=== PATIENT | male | born 1935 | race Caucasian/White ===

== ENCOUNTER 2018-05-29 16:11 | Inpatient (IN) | payer MEDICARE ==
[2018-05-29 16:40] LABS: ABSOLUTE BASOPHILS # (AUTO) 0.1 10^3/uL (0.0-0.2); ABSOLUTE EOSINOPHILS # (AUTO) 0.2 10^3/uL (0.0-0.6); ABSOLUTE MONOCYTES (AUTO) 0.3 10^3/uL (0.1-1.4); ABSOLUTE NEUT (AUTO) 9.6 10^3/uL (1.7-8.2); BASOPHILS % (AUTO) 0.7 % (0-2); HEMATOCRIT 42.9 % (37.9-51.0); HEMOGLOBIN 14.1 g/dL (13.5-17.0); LYMPHOCYTES % (AUTO) 8.7 % (13-45); MEAN CORPUSCULAR HEMOGLOBIN 30.4 pg (27.0-33.4); MEAN CORPUSCULAR HGB CONC 32.9 g/dL (32.0-36.0); MEAN CORPUSCULAR VOLUME 93 fl (80-97); MONOCYTES % (AUTO) 3.1 % (3-13); PLATELET COUNT 240 10^3/uL (150-450); RED BLOOD COUNT 4.64 10^6/uL (4.35-5.55); RED CELL DISTRIBUTION WIDTH 13.8 % (11.5-14.0); SEGMENTED NEUTROPHILS % (AUTO) 85.5 % (42-78); TOTAL CELLS COUNTED % (AUTO) 100 %; WHITE BLOOD COUNT 11.3 10^3/uL (4.0-10.5)
[2018-05-29] MEDS ORDERED: IPRATROPIUM/ALBUTEROL 0.5-2.5 MG/3 ML AMPUL NEB ONE ×2 (16:44→19:22)
--- NOTE | 2018-05-29 16:47 | ER Document Report ---
ED General - General Stated Complaint: BREATHING PROBLEMS Time Seen by Provider: 05/29/18 16:36 Mode of Arrival: Medic Notes: 82-year-old male brought to emergency department by EMS for difficulty breathing. Patient is from [place] and is here staying with family. He has a history of dementia, hypertension, hyperlipidemia. He is on 2 L nasal cannula at home. Patient's family states that he had a cough that started yesterday. They noticed that he was having increased work of breathing today. No fever, chills, chest pain, abdominal pain. - HPI Onset: Just prior to arrival Onset/Duration: Sudden Quality of pain: No pain Associated symptoms: Shortness of breath Exacerbated by: Denies Relieved by: Denies Similar symptoms previously: No Recently seen / treated by doctor: No - Related Data Allergies/Adverse Reactions: No Known Allergies Allergy (Unverified 05/29/18 17:17) Past Medical History - Social History Smoking Status: Never Smoker Family History: Reviewed & Not Pertinent Review of Systems - Review of Systems -: Yes ROS unobtainable due to patient's medical condition Physical Exam - Vital signs Vitals: Resp Pulse Ox 31 H 91 L 05/29/18 16:24 05/29/18 16:24 - Notes Notes: PHYSICAL EXAMINATION: GENERAL: Ill appearing. HEAD: Atraumatic. EYES: Pupils equal round and reactive to light, extraocular movements intact, sclera anicteric, conjunctiva are normal. ENT: Nares patent, oropharynx clear without exudates. Moist mucous membranes. NECK: Normal range of motion, supple without lymphadenopathy LUNGS: Mild wheezing appreciated. Increased respiratory rate. HEART: Regular rate and rhythm without murmurs ABDOMEN: Soft, nontender, nondistended abdomen. No guarding, no rebound. No masses appreciated. Musculoskeletal: Normal range of motion, no pitting or edema. No cyanosis. NEUROLOGICAL: Cranial nerves grossly intact. Normal speech. Normal sensory, motor exams PSYCH: Normal mood, normal affect. SKIN: Warm, Dry, normal turgor, no rashes or lesions noted. Course - Re-evaluation Re-evalutation: 05/29/18 19:48 Labs and imaging obtained. Patient's white blood cell count is slightly elevated. His chest x-ray shows a left lower lobe pneumonia. Patient is tachypneic in the room. He is been given 2 DuoNeb treatments and Solu-Medrol by EMS. Blood cultures obtained. Patient given 1 g of Rocephin and 500 mg of azithromycin. I will admit the patient to the hospitalist for treatment of his pneumonia. is agreeable with admission. 05/29/18 19:50 EKG: Ventricular rate 100, OK interval 164, QRS duration 70, QTc 434, sinus tachycardia. No ST segment elevation. 05/29/18 23:25 - Vital Signs Vital signs: Temp Pulse Resp BP Pulse Ox 99.2 F 96 27 H 106/58 L 91 L 05/29/18 16:46 05/29/18 16:46 05/29/18 22:01 05/29/18 22:01 05/29/18 22:01 - Laboratory Result Diagrams: 05/29/18 15:40 05/29/18 15:40 Laboratory results interpreted by me: 05/29/18 05/29/18 05/29/18 15:40 15:40 17:37 WBC 11.3 H Seg Neutrophils % 85.5 H Lymphocytes % 8.7 L Absolute Neutrophils 9.6 H Carbonic Acid 0.99 L ABG pCO2 32.9 L ABG pO2 61.8 L ABG Total CO2 22.8 L ABG O2 Saturation 92.7 L Potassium 5.6 H Glucose 114 H Discharge - Discharge Clinical Impression: Pneumonia Qualifiers: Pneumonia type: due to unspecified organism Laterality: left Lung location: lower lobe of lung Qualified Code(s): J18.1 - Lobar pneumonia, unspecified organism Disposition: ADMITTED OBSERVATION Admitting Provider: Hospitalist Unit Admitted: Telemetry
[2018-05-29 17:10] LABS: ALANINE AMINOTRANSFERASE 31 U/L (21-72); ALBUMIN 4.4 g/dL (3.5-5.0); ALKALINE PHOSPHATASE 75 U/L (38-126); ANION GAP 13 (5-19); ASPARTATE AMINO TRANSFERASE 49 U/L (17-59); BILIRUBIN,DIRECT 0.3 mg/dL (0.0-0.4); BILIRUBIN,TOTAL 0.6 mg/dL (0.2-1.3); BLOOD UREA NITROGEN 20 mg/dL (7-20); CALCIUM 9.6 mg/dL (8.4-10.2); CARBON DIOXIDE 27 mmol/L (22-30); CHLORIDE 101 mmol/L (98-107); CREATINE KINASE 63 U/L (55-170); GLUCOSE 114 mg/dL (75-110); POTASSIUM 5.6 mmol/L (3.6-5.0); SODIUM 141.2 mmol/L (137-145); TOTAL PROTEIN 7.6 g/dL (6.3-8.2)
[2018-05-29 17:18] LABS: CREATINE KINASE MB 1.99 ng/mL (<4.55)
[2018-05-29 17:23] LABS: TROPONIN I < 0.012 ng/mL
[2018-05-29 17:48] LABS: ARTERIAL BLOOD H2CO3 0.99 mmol/L (1.05-1.35); ARTERIAL BLOOD HCO3 21.7 mmol/L (20-24); ARTERIAL BLOOD PCO2 32.9 mmHg (35-45); ARTERIAL BLOOD PH 7.44 (7.35-7.45); ARTERIAL BLOOD PO2 61.8 mmHg (80-100); ARTERIAL BLOOD TOTAL CO2 22.8 mmol/L (23-27)
[2018-05-29 17:49] LABS: ARTERIAL BLOOD BASE EXCESS -1.6 mmol/L; ARTERIAL BLOOD FIO2 4L; ARTERIAL BLOOD O2 SATURATION 92.7 % (94-98)
--- NOTE | 2018-05-29 18:20 | RADIOLOGY REPORT (SQ) ---
EXAM DESCRIPTION: CHEST SINGLE VIEW COMPLETED DATE/TIME: 05/29/2018 4:58 pm REASON FOR STUDY: sob COMPARISON: None. EXAM PARAMETERS: NUMBER OF VIEWS: One view. TECHNIQUE: Single frontal radiographic view of the chest acquired. RADIATION DOSE: NA LIMITATIONS: None. FINDINGS: LUNGS AND PLEURA: There is opacification in the left base. MEDIASTINUM AND HILAR STRUCTURES: No masses. Contour normal. HEART AND VASCULAR STRUCTURES: Heart size is normal. There is ectasia of the ascending aorta. BONES: No acute findings. HARDWARE: None in the chest. OTHER: No other significant finding. IMPRESSION: Left lower lobe pneumonia. Ectasia of the ascending aorta. TECHNICAL DOCUMENTATION: JOB ID: [id number] [email or web address]- All Rights Reserved Reading location - IP/workstation name: [email or web address]
[2018-05-29] MEDS ORDERED: AZITHROMYCIN INJ 500 MG VIAL IV ONE (18:50)
[2018-05-29] MEDS ORDERED: CEFTRIAXONE INJ 1000 MG VIAL IV ONE (18:50)
[2018-05-29] MEDS ORDERED: NORMAL SALINE 1000 ML 1,000 ML IV ONE (18:52)
[2018-05-29 19:22] LABS: APPEARANCE,URINE CLEAR; BILIRUBIN,URINE NEGATIVE (NEGATIVE); COLOR,URINE STRAW; GLUCOSE, URINE NEGATIVE (NEGATIVE); KETONES,URINE NEGATIVE (NEGATIVE); LEUKOCYTE ESTERASE,URINE NEGATIVE (NEGATIVE); NITRITE,URINE NEGATIVE (NEGATIVE); PROTEIN,URINE NEGATIVE (NEGATIVE); URINE SPECIFIC GRAVITY 1.011; UROBILINOGEN,URINE NEGATIVE mg/dL (<2.0)
[2018-05-29] MEDS ORDERED: PROMETHAZINE HCL 25 MG TABLET PO PRN (20:25)
[2018-05-29] MEDS ORDERED: PROMETHAZINE HCL INJ 25 MG/1 ML VIAL IV PRN (20:25)
[2018-05-29] MEDS ORDERED: TEMAZEPAM 7.5 MG CAPSULE PO PRN (20:25)
[2018-05-29] MEDS ORDERED: MAG HYDROX/AL HYDROX/SIMETH SUSP 30 ML UDCUP PO PRN (20:25)
[2018-05-29] MEDS ORDERED: LEVALBUTEROL HCL NEB 1.25 MG/3 ML AMPUL NEB PRN (20:25)
[2018-05-29] MEDS ORDERED: GLUCAGON,HUMAN RECOMB 1 MG INJ IM PRN (20:39)
[2018-05-29] MEDS ORDERED: DEXTROSE 50%-WATER 25 GM/50 ML DISP.SYRIN IV PRN ×2 (20:39)
[2018-05-29] MEDS ORDERED: DEXTROSE 40% GEL 15 GM TUBE PO PRN ×2 (20:39)
[2018-05-29] MEDS: METHYLPREDNISOLONE INJ 125 MG/2 ML SDV IV SCH (22:16)
[2018-05-29] MEDS: ENOXAPARIN SODIUM INJ 40 MG/0.4 ML DISP.SYRIN SUBCUT SCH (22:17)
--- NOTE | 2018-05-29 23:44 | PDOC H&P ---
History of Present Illness Admission Date/PCP: 05/29/18 20:25 In [place] Patient complains of: Shortness of breath History of Present Illness: WILMAR SHERMAN is a 82 year old male who came to visit from [place] to his grandson who is at the bedside, has a remarkable history of diabetes mellitus type 2, CVA, hypertension, hypothyroidism. Grandsons girlfriend is at the bedside and tells me that she left about 2 PM and he had some persistent cough, later on girlfriend son stay at home when patient started asking for help as he had severe shortness of breath, EMS was called and he was found saturating 85% on room air, using accessory muscles, on respiratory distress. Tachypneic at 40. Patient has a history of pneumonia last year and upon discharge he was given oxygen that he uses intermittently. He is having cough with clear and yellowish sputum, unknown if wheezing, denies fever, chills, nausea, vomiting, chest pain, sore throat, patient has chronic runny nose. Grandson tells me that he has been told to eat a thick liquids and he has aspiration problem and his pneumonia a year ago was probably aspiration pneumonia. By the time I went to see him he was on oxygen at 4 L with oxygen saturation of 97%. Chest x-ray came back positive with left lower lobe infiltrates By the time I went to evaluate him he still looks tachypneic and very mild respiratory distress but not using accessory muscles. Past Medical History Cardiac Medical History: Reports: Hyperlipidema, Hypertension Pulmonary Medical History: Reports: Pneumonia Neurological Medical History: Reports: Ischemic CVA, Other - CVA with left mild residual weakness in 2005 Endocrine Medical History: Reports: Diabetes Mellitus Type 2, Hypothyroidism Psychiatric Medical History: Reports: Dementia - Mild to moderate Hematology: Reports: Anemia - Iron deficiency Past Surgical History Past Surgical History: Reports: None Social History Information Source: Relative Smoking Status: Never Smoker Frequency of Alcohol Use: None Hx Recreational Drug Use: No Hx Prescription Drug Abuse: No Past Social History Note: Patient lives in [place] with his - Advance Directive Resuscitation Status: Full Code Family History Family History: Reviewed & Not Pertinent Parental Family History Reviewed: No - Noncontributory Children Family History Reviewed: NA Sibling(s) Family History Reviewed.: NA Medication/Allergy Home Medications: Amlodipine Besylate [Norvasc 5 mg Tablet] 5 mg PO Q12 05/29/18 Cholecalciferol (Vitamin D3) [Vitamin D] 2,000 unit PO DAILY 05/29/18 Docusate Sodium [Colace] 100 mg PO DAILYP PRN 05/29/18 Ferrous Sulfate [Ferosul] 325 mg PO Q12 05/29/18 Glycerin 1 each RC DAILYP PRN 05/29/18 Levothyroxine Sodium 75 mcg PO DAILY 05/29/18 Losartan Potassium 100 mg PO DAILY 05/29/18 Metformin HCl 500 mg PO DAILY 05/29/18 Metoprolol Tartrate [Lopressor 25 mg Tablet] 25 mg PO Q12 05/29/18 [place]-3 Fatty Acids/Fish Oil [Fish Oil 1,000 mg Capsule] 1,000 mg PO Q12 Potassium Chloride [K-Tab] 10 meq PO DAILY 05/29/18 Pramipexole Di-HCl [Mirapex] 1 mg PO QHS 05/29/18 Simvastatin [Zocor 10 mg Tablet] 10 mg PO DAILY 05/29/18 Allergies/Adverse Reactions: No Known Allergies Allergy (Unverified 05/29/18 17:17) Review of Systems Review of Systems: As outlined in the HPI, others negative Physical Exam Vital Signs: Temp Pulse Resp BP Pulse Ox 99.2 F 96 27 H 106/58 L 91 L 05/29/18 16:46 05/29/18 16:46 05/29/18 22:01 05/29/18 22:01 05/29/18 22:01 Intake & Output 05/28/18 05/29/18 05/30/18 06:59 06:59 06:59 Intake Total 167 Balance 167 Additional comments: General appearance: Well-developed, elderly, alert and cooperative, and appears to be in mild respiratory distress Head: Normocephalic Eyes: PEERL, EOMI, vision, uses glasses. Ears: External auditory canal and tympanic membranes clear, hearing grossly intact. Nose: No nasal discharge. Throat: Oral cavity and pharynx normal. No inflammation, swelling, exudate or lesions. Neck: Neck supple, nontender without lymphadenopathy, masses or thyromegaly. Cardiac: Normal S1 and S2. No S3, S4 or murmurs. Rhythm is regular. There is no peripheral edema, cyanosis or pallor. Extremities are warm and well perfused. Capillary refill is less than 2 seconds. No carotid bruits. Lungs: Diminished breath sounds, crackles two thirds inferior bilaterally with mild expiratory wheezing, no rhonchi. Not using accessory muscles. Abdomen: Positive bowel sounds. Soft. Nondistended, nontender. No guarding or rebound. No masses. No hepatosplenomegaly Extremities: No significant deformity or joint abnormality. No edema. Peripheral pulses intact. No varicosities. Neurological: Cranial nerves II through XII grossly intact. Strength and sensation mildly decreased in left upper extremity Skin: Skin normal color, texture and turgor with no lesions or eruptions, warm and dry. Psychiatric: The mental examination revealed the patient was oriented to person , partially to place, and time. He knows the year, month, date, he knew this was a hospital bed he did not know the exact location, knew was in [place], cannot recognize family members, knows the president. Results Laboratory Results: 05/29/18 05/29/18 05/29/18 15:40 15:40 15:40 WBC 11.3 H RBC 4.64 Hgb 14.1 Hct 42.9 MCV 93 MCH 30.4 MCHC 32.9 RDW 13.8 Plt Count 240 Seg Neutrophils % 85.5 H Lymphocytes % 8.7 L Monocytes % 3.1 Eosinophils % 2.0 Basophils % 0.7 Absolute Neutrophils 9.6 H Absolute Lymphocytes 1.0 Absolute Monocytes 0.3 Absolute Eosinophils 0.2 Absolute Basophils 0.1 Carbonic Acid HCO3/H2CO3 Ratio ABG pH ABG pCO2 ABG pO2 ABG HCO3 ABG Total CO2 ABG O2 Saturation ABG Base Excess FiO2 Sodium 141.2 Potassium 5.6 H Chloride 101 Carbon Dioxide 27 Anion Gap 13 BUN 20 Creatinine 0.88 Est GFR ( Amer) > 60 Est GFR (Non-Af Amer) > 60 Glucose 114 H Calcium 9.6 Total Bilirubin 0.6 Direct Bilirubin 0.3 AST 49 ALT 31 Alkaline Phosphatase 75 Creatine Kinase 63 CK-MB (CK-2) 1.99 Troponin I < 0.012 Total Protein 7.6 Albumin 4.4 Urine Color Urine Appearance Urine pH Ur Specific [place] Urine Protein Urine Glucose (UA) Urine Ketones Urine Blood Urine Nitrite Urine Bilirubin Urine Urobilinogen Ur Leukocyte Esterase Urine WBC (Auto) Urine RBC (Auto) U Hyaline Cast (Auto) Urine Mucus (Auto) Urine Ascorbic Acid 05/29/18 05/29/18 17:37 19:14 WBC RBC Hgb Hct MCV MCH MCHC RDW Plt Count Seg Neutrophils % Lymphocytes % Monocytes % Eosinophils % Basophils % Absolute Neutrophils Absolute Lymphocytes Absolute Monocytes Absolute Eosinophils Absolute Basophils Carbonic Acid 0.99 L HCO3/H2CO3 Ratio 21:1 ABG pH 7.44 ABG pCO2 32.9 L ABG pO2 61.8 L ABG HCO3 21.7 ABG Total CO2 22.8 L ABG O2 Saturation 92.7 L ABG Base Excess -1.6 FiO2 4L Sodium Potassium Chloride Carbon Dioxide Anion Gap BUN Creatinine Est GFR ( Amer) Est GFR (Non-Af Amer) Glucose Calcium Total Bilirubin Direct Bilirubin AST ALT Alkaline Phosphatase Creatine Kinase CK-MB (CK-2) Troponin I Total Protein Albumin Urine Color STRAW Urine Appearance CLEAR Urine pH 6.0 Ur Specific [place] 1.011 Urine Protein NEGATIVE Urine Glucose (UA) NEGATIVE Urine Ketones NEGATIVE Urine Blood NEGATIVE Urine Nitrite NEGATIVE Urine Bilirubin NEGATIVE Urine Urobilinogen NEGATIVE Ur Leukocyte Esterase NEGATIVE Urine WBC (Auto) 1 Urine RBC (Auto) 0 U Hyaline Cast (Auto) 1 Urine Mucus (Auto) RARE Urine Ascorbic Acid NEGATIVE Impressions: Chest X-Ray 05/29/18 16:27 IMPRESSION: Left lower lobe pneumonia. Ectasia of the ascending aorta. Assessment & Plan - Diagnosis (1) Acute respiratory failure with hypoxia Is this a current diagnosis for this admission?: Yes Plan: Initial oxygen saturation was 85% on room air, improve after oxygen via nasal cannula and treatment given in the emergency department, currently saturating 97 % on 4 L oxygen. (2) Community acquired pneumonia Qualifiers: Laterality: left Is this a current diagnosis for this admission?: Yes Plan: Patient comes with initial acute hypoxic respiratory failure, found with left lower lobe infiltrate. We will continue the patient with IV Rocephin and IV azithromycin. Nebulizer treatments every 3 hours as needed. IV steroids. Oxygen protocol via nasal cannula. Incentive spirometry. RT consult. Sputum culture. Please follow blood cultures. 1 L of normal saline given in the ED, continue with normal saline at 75 cc/h. (3) Diabetes mellitus type 2 in nonobese Is this a current diagnosis for this admission?: Yes (4) History of CVA (cerebrovascular accident) Is this a current diagnosis for this admission?: Yes Plan: Very mild left upper extremity hemiparesis, grandson tells me that he is very unsteady and uses a cane to walk. (5) Hypertension Qualifiers: Hypertension type: essential hypertension Qualified Code(s): I10 - Essential (primary) hypertension Is this a current diagnosis for this admission?: Yes Plan: Resume home antihypertensive medications (6) Dysphagia Qualifiers: Dysphagia type: unspecified Qualified Code(s): R13.10 - Dysphagia, unspecified Is this a current diagnosis for this admission?: Yes Plan: Apparently patient is supposed to eat thick diet, unclear if his pneumonia secondary to aspiration, will place swallow evaluation. (7) Hyperkalemia Is this a current diagnosis for this admission?: Yes Plan: Potassium 5.6, will reassess potassium after IV fluids hydration.
[2018-05-30] MEDS: IPRATROPIUM/ALBUTEROL 0.5-2.5 MG/3 ML AMPUL NEB PRN ×2 (00:10→08:30)
[2018-05-30] MEDS: INSULIN LISPRO 100 UNIT/ML 3 ML VIAL SUBCUT PRN ×4 (00:13→21:53)
[2018-05-30] MEDS ORDERED: GLYCERIN (PEDIATRIC) SUPP.RECT PR PRN (02:54)
[2018-05-30] MEDS ORDERED: DOCUSATE SODIUM 100 MG CAPSULE PO PRN (02:54)
[2018-05-30 04:54] LABS: MEAN CORPUSCULAR HEMOGLOBIN 30.8 pg (27.0-33.4); MEAN CORPUSCULAR HGB CONC 33.6 g/dL (32.0-36.0); MEAN CORPUSCULAR VOLUME 92 fl (80-97); PLATELET COUNT 198 10^3/uL (150-450); RED BLOOD COUNT 3.82 10^6/uL (4.35-5.55); RED CELL DISTRIBUTION WIDTH 13.7 % (11.5-14.0); WHITE BLOOD COUNT 16.6 10^3/uL (4.0-10.5)
[2018-05-30] MEDS: NORMAL SALINE 1000 ML 1,000 ML IV PRN (05:00)
[2018-05-30 05:01] LABS: HEMOGLOBIN 11.8 g/dL (13.5-17.0)
[2018-05-30 05:11] LABS: ANION GAP 15 (5-19); BLOOD UREA NITROGEN 18 mg/dL (7-20); CALCIUM 9.3 mg/dL (8.4-10.2); CARBON DIOXIDE 19 mmol/L (22-30); CHLORIDE 105 mmol/L (98-107); GLUCOSE 181 mg/dL (75-110); PHOSPHORUS 2.6 mg/dL (2.5-4.5); SODIUM 139.2 mmol/L (137-145)
[2018-05-30 05:28] LABS: ABSOLUTE LYMPHOCYTES# (MANUAL) 0.5 10^3/uL (0.5-4.7); ABSOLUTE MONOCYTES # (MANUAL) 0.2 10^3/uL (0.1-1.4); ABSOLUTE NEUTROPHILS# (MANUAL) 15.9 10^3/uL (1.7-8.2); BASOPHILS % (MANUAL) 0 % (0-2); EOSINOPHILS % (MANUAL) 0 % (0-6); LYMPHOCYTES % (MANUAL) 3 % (13-45); MONOCYTES % (MANUAL) 1 % (3-13); PLATELET COMMENT ADEQUATE; SCHISTOCYTES SLIGHT; SEGMENTED NEUTROPHILS % (MAN) 96 % (42-78); TOTAL CELLS COUNTED 100
[2018-05-30] MEDS: METHYLPREDNISOLONE INJ 125 MG/2 ML SDV IV SCH (05:34)
[2018-05-30] MEDS: LEVOTHYROXINE SODIUM 0.075 MG TABLET PO SCH (05:35)
[2018-05-30 06:45] LABS: ARTERIAL BLOOD PH 7.55 (7.35-7.45)
[2018-05-30 06:46] LABS: ARTERIAL BLOOD BASE EXCESS -1.5 mmol/L; ARTERIAL BLOOD FIO2 35%; ARTERIAL BLOOD H2CO3 0.69 mmol/L (1.05-1.35); ARTERIAL BLOOD HCO3 19.4 mmol/L (20-24); ARTERIAL BLOOD O2 SATURATION 98.5 % (94-98); ARTERIAL BLOOD PCO2 22.9 mmHg (35-45); ARTERIAL BLOOD TOTAL CO2 20.1 mmol/L (23-27)
--- NOTE | 2018-05-30 08:54 | EKG REPORT ---
SEVERITY:- BORDERLINE ECG - SINUS TACHYCARDIA PROBABLE LEFT ATRIAL ABNORMALITY BORDERLINE T ABNORMALITIES, ANT-LAT LEADS : Confirmed by: Lorelei Sawyer 30-May-2018 08:53:44
[2018-05-30] MEDS ORDERED: METFORMIN HCL 500 MG TABLET PO SCH ×3 (10:00→17:14)
[2018-05-30] MEDS ORDERED: OMEGA-3 ACID ETHYL ESTERS 1 GM CAPSULE PO SCH (10:00)
[2018-05-30] MEDS ORDERED: SIMVASTATIN 10 MG TABLET PO SCH (10:00)
[2018-05-30] MEDS ORDERED: METOPROLOL TARTRATE 25 MG TABLET PO SCH (10:00)
[2018-05-30] MEDS ORDERED: AZITHROMYCIN INJ 500 MG VIAL IV SCH (10:00)
[2018-05-30] MEDS ORDERED: CEFTRIAXONE 2 GM/D5W RTU 2 GM/50 ML RTUPB IV SCH (10:00)
[2018-05-30] MEDS ORDERED: AMLODIPINE BESYLATE 5 MG TABLET PO SCH (10:00)
[2018-05-30] MEDS ORDERED: FERROUS SULFATE 325 MG TABLET PO SCH (10:00)
[2018-05-30] MEDS ORDERED: CEFTRIAXONE SODIUM 2,000 MG in DEXTROSE 5%-WATER 100 ML IV SCH (10:00)
[2018-05-30] MEDS: CHOLECALCIFEROL (D3) 1,000 UNIT TABLET PO SCH (10:27)
[2018-05-30] MEDS: LOSARTAN POTASSIUM 50 MG TABLET PO SCH (10:27)
[2018-05-30] MEDS: ENOXAPARIN SODIUM INJ 40 MG/0.4 ML DISP.SYRIN SUBCUT SCH (10:30)
[2018-05-30] MEDS ORDERED: PROMETHAZINE HCL INJ 25 MG/1 ML VIAL IV PRN (10:30)
[2018-05-30] MEDS: METHYLPREDNISOLONE INJ 40 MG/1 ML SDV IV SCH ×2 (14:12→21:53)
[2018-05-30] MEDS: LEVALBUTEROL HCL NEB 1.25 MG/3 ML AMPUL NEB SCH ×3 (14:13→23:59)
[2018-05-30] MEDS: BUDESONIDE NEB 0.5 MG/2 ML AMPUL NEB SCH ×2 (14:13→19:44)
[2018-05-30] MEDS: ACETYLCYSTEINE 20% SOLN 800 MG/4 ML VIAL.NEB NEB SCH ×2 (14:16→19:44)
[2018-05-30] MEDS: IPRATROPIUM BROMIDE 0.02% NEB 0.5 MG/2.5 ML AMPUL NEB SCH (16:15)
--- NOTE | 2018-05-30 17:13 | PDOC PROGRESS REPORT ---
Subjective Progress Note for:: 05/30/18 Subjective:: WILMAR SEHRMAN is a 82 year old male who presented to the emergency room with acute onset of cough and dyspnea. He admits that he began having a cough on the afternoon of admission which became more and more persistent with severe paroxysms lasting for more extended durations each time. The cough was accompanied by progressively more severe dyspnea which became so bad that he asked that EMS be summoned. Upon EMS arrival he was found to have an O2 sat of 85% on room air and to be in significant respiratory distress with marked tachypnea and requiring use of accessory muscles to assist his breathing. He admits that the cough has been productive of mostly clear but occasionally yellowish sputum and he has rhinorrhea but this is a chronic condition. He admits that he has had pneumonia in the past with an episode last year where he had similar symptoms and required oxygen during his hospitalization and at home after discharge. He also admits a history of dysphagia and is prescribed to use nectar thick liquids however he does not always follow his doctor's recommendation. In the emergency room he was found to have a left lower lung field infiltrate (airspace disease) but was easily stabilized with 4 L of oxygen via nasal cannula resulting in a 97% oxygen saturation. He was admitted to treat his community-acquired pneumonia due to his acute respiratory failure with hypoxia and his age and multiple comorbidities. Reason For Visit: CAP Physical Exam Vital Signs: Temp Pulse Resp BP Pulse Ox 97.9 F 69 16 118/60 100 05/30/18 11:14 05/30/18 14:13 05/30/18 14:13 05/30/18 11:14 05/30/18 14:13 Intake & Output 05/28/18 05/29/18 05/30/18 23:59 23:59 23:59 Intake Total 167 919 Output Total 1475 Balance 167 -556 Weight 66.3 kg 64.9 kg General appearance: PRESENT: cooperative, mild distress - Mild respiratory distress with tachypnea, other - Wearing a CPAP mask that is fitting very poorly , with virtually no seal to the patient's face. Head exam: PRESENT: atraumatic, normocephalic Eye exam: PRESENT: conjunctiva pink, EOMI Ear exam: PRESENT: normal external ear exam. ABSENT: drainage Mouth exam: PRESENT: neck supple, tongue midline Neck exam: ABSENT: JVD, thyromegaly, tracheal deviation Respiratory exam: PRESENT: prolonged expiratory phas - Mildly prolonged expiratory phase throughout the chest, rales - Coarse rales noted in the left base posteriorly and laterally., rhonchi - Coarse rhonchi present on the left, symmetrical, tachypnea, wheezes - Minimal end expiratory wheezes in all ozuna. ABSENT: accessory muscle use, chest wall tenderness, stridor Cardiovascular exam: PRESENT: RRR. ABSENT: clicks, gallop, rubs Vascular exam: PRESENT: normal capillary refill. ABSENT: pallor GI/Abdominal exam: PRESENT: normal bowel sounds, soft Rectal exam: PRESENT: deferred Extremities exam: ABSENT: joint swelling, pedal edema Musculoskeletal exam: PRESENT: full ROM, normal inspection Neurological exam: PRESENT: alert, oriented to person, oriented to place, oriented to time, oriented to situation Psychiatric exam: PRESENT: appropriate affect, normal mood Skin exam: PRESENT: dry, intact, warm. ABSENT: jaundice, rash, urticaria Results Laboratory Results: 05/30/18 04:13 05/30/18 04:13 05/29/18 05/30/18 05/30/18 23:52 04:13 04:13 WBC 16.6 H RBC 3.82 L Hgb 11.8 L D Hct 35.0 L MCV 92 MCH 30.8 MCHC 33.6 RDW 13.7 Plt Count 198 Seg Neutrophils % Not Reportable Lymphocytes % Not Reportable Monocytes % Not Reportable Eosinophils % Not Reportable Basophils % Not Reportable Absolute Neutrophils Not Reportable Absolute Lymphocytes Not Reportable Absolute Monocytes Not Reportable Absolute Eosinophils Not Reportable Absolute Basophils Not Reportable Carbonic Acid HCO3/H2CO3 Ratio ABG pH ABG pCO2 ABG pO2 ABG HCO3 ABG O2 Saturation ABG Base Excess FiO2 Sodium 139.2 Potassium 5.3 H 5.0 Chloride 105 Carbon Dioxide 19 L Anion Gap 15 BUN 18 Creatinine 0.85 Est GFR ( Amer) > 60 Est GFR (Non-Af Amer) > 60 Glucose 181 H Calcium 9.3 Phosphorus 2.6 Magnesium 1.9 05/30/18 06:20 WBC RBC Hgb Hct MCV MCH MCHC RDW Plt Count Seg Neutrophils % Lymphocytes % Monocytes % Eosinophils % Basophils % Absolute Neutrophils Absolute Lymphocytes Absolute Monocytes Absolute Eosinophils Absolute Basophils Carbonic Acid 0.69 L HCO3/H2CO3 Ratio 28:1 ABG pH 7.55 H ABG pCO2 22.9 L ABG pO2 106.0 H ABG HCO3 19.4 L ABG O2 Saturation 98.5 H ABG Base Excess -1.5 FiO2 35% Sodium Potassium Chloride Carbon Dioxide Anion Gap BUN Creatinine Est GFR ( Amer) Est GFR (Non-Af Amer) Glucose Calcium Phosphorus Magnesium EKG Comments: EKG shows a sinus tachycardia with nonspecific T wave changes present. Impressions: Chest X-Ray 05/29/18 16:27 IMPRESSION: Left lower lobe pneumonia. Ectasia of the ascending aorta. Status: Image reviewed by me - Single view chest x-ray reveals acute airspace disease in the lower one third of the left lung ozuna. This most likely represents a left lower lobe pneumonia. No other acute changes are noted. Assessment & Plan - Diagnosis (1) Acute respiratory failure with hypoxia Is this a current diagnosis for this admission?: Yes Plan: Patient is being maintained on supplemental oxygen and use of advanced airway support devices such as CPAP as needed. Efforts will be made at reducing the patient's dependence on supplemental oxygen to whatever degree is possible. An aggressive pulmonary toilet and intravenous steroids will be employed in the effort. Additionally the underlying left lower lobe pneumonia is being aggressively treated as a community-acquired pneumonia utilizing Rocephin and Zithromax. (2) Community acquired pneumonia Qualifiers: Laterality: left Lung location: lower lobe of lung Qualified Code(s): J18.1 - Lobar pneumonia, unspecified organism Is this a current diagnosis for this admission?: Yes Plan: Patient is initiated on intravenous antibiotic therapy utilizing Zithromax 500 mg IV daily and Rocephin 1 g IV daily after an initial 2 g dose. He will also receive an aggressive pulmonary toilet utilizing Xopenex and Atrovent 3 times daily with budesonide and Mucomyst twice a day. His CBC and metabolic profile will be followed on a daily basis. (3) Diabetes mellitus type 2 in nonobese Is this a current diagnosis for this admission?: Yes Plan: Patient will be continued on his usual diabetic medication of metformin and a heart healthy consistent carbohydrate with no concentrated sweets diet. It is expected that his blood sugar will be erratic due to the use of steroids. Therefore he will additionally have before meals and at bedtime fingerstick blood sugars performed and he will receive sliding scale Humalog insulin based upon those results. A hemoglobin A1c will be obtained as well a TSH and a lipid profile to assist in evaluation of the patient's diabetes and other chronic problems. (4) Dysphagia Qualifiers: Dysphagia type: unspecified Qualified Code(s): R13.10 - Dysphagia, unspecified Is this a current diagnosis for this admission?: Yes Plan: Patient has a history of dysphagia which has been evaluated by speech therapy who recommends a modified barium swallow evaluation as well as a nectar thick liquids chopped meats and vegetables diet. This will be employed immediately. - Time Time Spent with patient: 15-24 minutes Medications reviewed and adjusted accordingly: Yes
[2018-05-30] MEDS ORDERED: AZITHROMYCIN 500 MG in DEXTROSE 5%-WATER 250 ML IV SCH (18:00)
[2018-05-30] MEDS ORDERED: CEFTRIAXONE SODIUM 1,000 MG in DEXTROSE 5%-WATER 50 ML IV SCH (18:00)
[2018-05-30] MEDS: ALBUTEROL SULFATE 0.083% NEB 2.5 MG/3 ML AMPUL NEB PRN (19:44)
[2018-05-30] MEDS: AMLODIPINE BESYLATE 10 MG TABLET PO SCH (21:52)
[2018-05-30] MEDS: ACETAMINOPHEN 325 MG TABLET PO PRN (21:52)
[2018-05-30] MEDS: PRAMIPEXOLE DI-HCL 0.5 MG TABLET PO SCH (21:52)
[2018-05-31] MEDS: NORMAL SALINE 1000 ML 1,000 ML IV PRN (04:30)
[2018-05-31 05:02] LABS: HEMATOCRIT 34.6 % (37.9-51.0); HEMOGLOBIN 11.6 g/dL (13.5-17.0); MEAN CORPUSCULAR HEMOGLOBIN 30.8 pg (27.0-33.4); MEAN CORPUSCULAR HGB CONC 33.5 g/dL (32.0-36.0); MEAN CORPUSCULAR VOLUME 92 fl (80-97); PLATELET COUNT 199 10^3/uL (150-450); RED BLOOD COUNT 3.77 10^6/uL (4.35-5.55); WHITE BLOOD COUNT 21.8 10^3/uL (4.0-10.5)
[2018-05-31 05:03] LABS: VENOUS BLOOD BASE EXCESS -5.4 mmol/L; VENOUS BLOOD HCO3 18.9 mmol/L (20-32); VENOUS BLOOD PCO2 32.9 mmHg (35-63); VENOUS BLOOD PH 7.38 (7.30-7.42)
[2018-05-31 05:25] LABS: ANION GAP 13 (5-19); BLOOD UREA NITROGEN 30 mg/dL (7-20); CALCIUM 9.3 mg/dL (8.4-10.2); CARBON DIOXIDE 21 mmol/L (22-30); CHLORIDE 107 mmol/L (98-107); CHOLESTEROL 122.56 mg/dL (0-200); GLUCOSE 185 mg/dL (75-110); POTASSIUM 4.9 mmol/L (3.6-5.0); SODIUM 140.5 mmol/L (137-145); TRIGLYCERIDES 54 mg/dL (<150)
[2018-05-31 05:36] LABS: DIRECT LDL 63 mg/dL (<100)
[2018-05-31] MEDS: LEVOTHYROXINE SODIUM 0.075 MG TABLET PO SCH (05:59)
[2018-05-31] MEDS: ACETYLCYSTEINE 20% SOLN 800 MG/4 ML VIAL.NEB NEB SCH ×2 (07:36→19:55)
[2018-05-31] MEDS: IPRATROPIUM BROMIDE 0.02% NEB 0.5 MG/2.5 ML AMPUL NEB SCH ×3 (07:36→16:05)
[2018-05-31] MEDS: BUDESONIDE NEB 0.5 MG/2 ML AMPUL NEB SCH ×2 (07:37→19:55)
[2018-05-31] MEDS: LEVALBUTEROL HCL NEB 1.25 MG/3 ML AMPUL NEB SCH ×2 (07:37→16:05)
[2018-05-31] MEDS: INSULIN LISPRO 100 UNIT/ML 3 ML VIAL SUBCUT PRN ×4 (08:49→22:00)
[2018-05-31] MEDS ORDERED: CEFTRIAXONE 1 GM/D5W RTU 1 GM/50 ML RTUPB IV SCH (10:00)
[2018-05-31] MEDS ORDERED: CEFTRIAXONE SODIUM 1,000 MG in DEXTROSE 5%-WATER 50 ML IV SCH (10:00)
[2018-05-31] MEDS: CHOLECALCIFEROL (D3) 1,000 UNIT TABLET PO SCH (10:56)
[2018-05-31] MEDS: METOPROLOL SUCCINATE 50 MG TAB.SR.24H PO SCH (10:56)
[2018-05-31] MEDS: LOSARTAN POTASSIUM 50 MG TABLET PO SCH (10:56)
[2018-05-31] MEDS: FERROUS SULFATE 325 MG TABLET PO SCH (10:56)
[2018-05-31] MEDS: METHYLPREDNISOLONE INJ 40 MG/1 ML SDV IV SCH (10:57)
[2018-05-31] MEDS: ENOXAPARIN SODIUM INJ 40 MG/0.4 ML DISP.SYRIN SUBCUT SCH (10:57)
--- NOTE | 2018-05-31 11:10 | ST Inp Modified Barium Swallow ---
Medical Diagnosis - Medical Diagnoses Medical Diagnosis Description & ICD-10 Code(s): Acute respiratory failure with hypoxia, dysphagia ST Inpatient MBS - General Date: 05/31/18 - History History Obtained From: Patient -: Medical - per EMR: patient admitted 05/29/18 due to shortness of breath. Prior medical history incudes diabetes, prior CVA, hypertension, hypothyroidism. Per patient report, he is "supposed to take thick liquids, but I don't always". Patient affirmed that he has had a MBSS completed, but is unable to state when this was done or what the findings were. Medications: Medications Reviewed Allergies: No known allergies - Subjective Current Nutritional Means: PO Current PO Diet: Mechanical - cut, Thickened liquids - nectar thick Current Symptoms: Pneumonia, Aspiration, Hx of asp. pneumonia Pain: no signs/symptoms of pain - Objective Assessment: Upright, Left Lateral - Food Trials Food Trials Used: [place] thick liquids, Pureed, Regular The Patient: Was Able to Self Feed - Assessment Labial Function: Within Normal Limits Lingual Function: Within Normal Limits Mandibular Function: Within Normal Limits Dentition: Partial Laryngeal Function: Volitional Cough - Pharyngeal Stage Initiation of Pharyngeal Stage: Normal Decreased Laryngeal Elevation: Yes Reduced Velo-Pharyngeal Closure: no Reduced Pressure Generation: Yes Reduced Tongue Base Retraction: No Pre-Swallowing Pooling in Valleculae: None Pre-Swallowing Pooling in Pyriforms: None Reduced Thyro-Hyiod Approximation: Yes Reduced Epiglottic Excursion: Yes Multiple Swallows With: Ineffective Clearance - for regular solids Post Swallow Residuals in Valleculae: Mild - for nectar thick liquids, Moderate - for puree, Significant - for regular solid Post Swallow Residuals in Pyriforms: Mild - Impression/Summary Laryngeal Penetration: Yes, Flash, Silent, during swallow - with nectar thick liquids in 1/5 swallows Tracheal Aspiration: yes, silent, after swallow - Silent aspiration of residuals of regular solid Effective Compensatory Strategies: chin tuck - Effective to clear significant residue of regular solid with liquid wash, throat clear & reswallow - to clear aspiratoin Patient Presents With: Mild-Moderate Risk of Aspiration: Moderate Risk of Nutritional Compromise: Mild - Recommendations NPO: no Solid Diet Recommendations: Mechanical Soft, Chopped Meat Liquid Diet Recommendations: [place]-Thick Strict Aspitarion Precautions: Yes Dysphagia Therapy with ROUTE RELIEF DRIVER: Yes, Inpatient - f/u x1 inpatient to review recommended compensatory strategies and provide education for swallowing exercises, Outpatient Recommended Techniques: Fully Upright During Meal, Small Bites and Sips, Alternate Bites/Sips, Chin Tuck to Swallow Supervision: Independent - Time Total Time: 25 Total Timed Minutes: 25
--- NOTE | 2018-05-31 11:25 | RADIOLOGY REPORT (SQ) ---
EXAM DESCRIPTION: AMANDA SWALLOW COMPLETED DATE/TIME: 05/31/2018 10:31 am REASON FOR STUDY: aspiration risk aspiration pneumonia, CVA, coughing with meals COMPARISON: None. TECHNIQUE: Videofluoroscopic swallowing examination was performed in conjunction with speech patholo gy. Videofluoroscopic imaging was obtained and reviewed and these are the findings: RADIATION DOSE: 3 minutes 14 seconds of fluoroscopy was used. 3 images saved to PACS. LIMITATIONS: None FINDINGS: The patient was brought into the fluoro room and placed upright on a modified barium swall ow chair. The patient was then given multiple consistencies mixed with barium to swallow under live fluoroscopic video guidance. According to the Speech Pathologist there was laryngeal penetration wit h thin liquids. There is aspiration of post swallow residual contrast from the vallecular and pirifo rm sinuses. Moderate post swallow residual contrast. IMPRESSION: LARYNGEAL PENETRATION WITH THIN LIQUIDS. SILENT ASPIRATION OF POST SWALLOW RESIDUAL CON TRAST FROM THE VALLECULA AND PIRIFORM SINUSES.PLEASE SEE SPEECH PATHOLOGIST REPORT FOR OTHER FINDINGS AND RECOMMENDATIONS. COMMENT: Quality ID [id number]: Final reports for procedures using fluoroscopy that document radiation exp osure indices, or exposure time and number of fluorographic images (if radiation exposure indices are not available) TECHNICAL DOCUMENTATION: JOB ID: [id number] [employer]- All Rights Reserved Reading location - IP/workstation name: [email or web address]
[2018-05-31] MEDS: GLIMEPIRIDE 4 MG TABLET PO SCH (12:55)
--- NOTE | 2018-05-31 16:18 | PDOC PROGRESS REPORT ---
Subjective Progress Note for:: 05/31/18 Subjective:: WILMAR SHERMAN is a 82 year old male who presented to the emergency room with acute onset of cough and dyspnea. He admits that he began having a cough on the afternoon of admission which became more and more persistent with severe paroxysms lasting for more extended durations each time. The cough was accompanied by progressively more severe dyspnea which became so bad that he asked that EMS be summoned. Upon EMS arrival he was found to have an O2 sat of 85% on room air and to be in significant respiratory distress with marked tachypnea and requiring use of accessory muscles to assist his breathing. He admits that the cough has been productive of mostly clear but occasionally yellowish sputum and he has rhinorrhea but this is a chronic condition. He admits that he has had pneumonia in the past with an episode last year where he had similar symptoms and required oxygen during his hospitalization and at home after discharge. He also admits a history of dysphagia and is prescribed to use nectar thick liquids however he does not always follow his doctor's recommendation. In the emergency room he was found to have a left lower lung field infiltrate (airspace disease) but was easily stabilized with 4 L of oxygen via nasal cannula resulting in a 97% oxygen saturation. He was admitted to treat his community-acquired pneumonia due to his acute respiratory failure with hypoxia and his age and multiple comorbidities. 05/31/2018: Wilmar is doing substantially better today. His breathing is significantly improved and he is able to tolerate activity although he still requires supplemental oxygen at 2-3 L. We discussed this and he will be willing to test paid and activity with the nurse assisting him in walking in the room and in the bell. I have converted his antibiotics to an oral formulation and have encouraged him to continue to eat and drink well. We have discussed at length the plan to discharge him to home tomorrow if he continues to do well and this is what he desires. He denies pain in his chest or abdomen and his or vomiting. His cough is become essentially nonproductive at this point and he is having a less frequent cough. Reason For Visit: CAP Physical Exam Vital Signs: Temp Pulse Resp BP Pulse Ox 98.0 F 63 18 102/53 L 97 05/31/18 11:49 05/31/18 14:00 05/31/18 11:49 05/31/18 11:49 05/31/18 11:49 Intake & Output 05/29/18 05/30/18 05/31/18 23:59 23:59 23:59 Intake Total 167 2642 1160 Output Total 1475 775 Balance 167 1167 385 Weight 66.3 kg 64.9 kg 66.2 kg General appearance: PRESENT: no acute distress, cooperative Head exam: PRESENT: atraumatic, normocephalic Eye exam: PRESENT: conjunctiva pink, EOMI Ear exam: PRESENT: normal external ear exam. ABSENT: drainage Mouth exam: PRESENT: neck supple, tongue midline Neck exam: ABSENT: thyromegaly, tracheal deviation Respiratory exam: PRESENT: decreased breath sounds - Left posterior base although air movement is significantly improved through the area compared to yesterday's exam., rales - Coarse rales are noted to be present in the left posterior and axillary lower chest regions., symmetrical, unlabored Cardiovascular exam: PRESENT: RRR. ABSENT: clicks, gallop, rubs Vascular exam: PRESENT: normal capillary refill. ABSENT: pallor GI/Abdominal exam: PRESENT: [place] - [address], soft Rectal exam: PRESENT: deferred Extremities exam: ABSENT: joint swelling, pedal edema Musculoskeletal exam: PRESENT: ambulatory. ABSENT: deformity, dislocation Neurological exam: PRESENT: alert, oriented to person, oriented to place, oriented to time, oriented to situation, CN II-XII grossly intact. ABSENT: motor sensory deficit Psychiatric exam: PRESENT: appropriate affect, normal mood Skin exam: PRESENT: dry, intact, warm. ABSENT: jaundice, rash, urticaria Results Laboratory Results: 05/31/18 04:38 05/31/18 04:38 05/31/18 05/31/18 05/31/18 04:38 04:38 04:38 WBC 21.8 H RBC 3.77 L Hgb 11.6 L Hct 34.6 L MCV 92 MCH 30.8 MCHC 33.5 RDW 14.0 Plt Count 199 VBG pH VBG pCO2 VBG HCO3 VBG Base Excess Sodium 140.5 Potassium 4.9 Chloride 107 Carbon Dioxide 21 L Anion Gap 13 BUN 30 H Creatinine 0.95 Est GFR ( Amer) > 60 Est GFR (Non-Af Amer) > 60 Glucose 185 H Calcium 9.3 Magnesium 2.1 Triglycerides 54 Cholesterol 122.56 LDL Cholesterol Direct 63 VLDL Cholesterol 11.0 HDL Cholesterol 53 TSH 0.95 05/31/18 04:38 WBC RBC Hgb Hct MCV MCH MCHC RDW Plt Count VBG pH 7.38 VBG pCO2 32.9 L VBG HCO3 18.9 L VBG Base Excess -5.4 Sodium Potassium Chloride Carbon Dioxide Anion Gap BUN Creatinine Est GFR ( Amer) Est GFR (Non-Af Amer) Glucose Calcium Magnesium Triglycerides Cholesterol LDL Cholesterol Direct VLDL Cholesterol HDL Cholesterol TSH Impressions: Chest X-Ray 05/29/18 16:27 IMPRESSION: Left lower lobe pneumonia. Ectasia of the ascending aorta. Modified Barium Swallow 05/31/18 00:00 IMPRESSION: LARYNGEAL PENETRATION WITH THIN LIQUIDS. SILENT ASPIRATION OF POST SWALLOW RESIDUAL CONTRAST FROM THE VALLECULA AND PIRIFORM SINUSES.PLEASE SEE SPEECH PATHOLOGIST REPORT FOR OTHER FINDINGS AND RECOMMENDATIONS. Assessment & Plan - Diagnosis (1) Acute respiratory failure with hypoxia Is this a current diagnosis for this admission?: Yes Plan: Patient is being maintained on supplemental oxygen and use of advanced airway support devices such as CPAP as needed. Efforts will be made at reducing the patient's dependence on supplemental oxygen to whatever degree is possible. An aggressive pulmonary toilet and intravenous steroids will be employed in the effort. Additionally the underlying left lower lobe pneumonia is being aggressively treated as a community-acquired pneumonia utilizing Rocephin and Zithromax. 05/31/2018: Patient is back to his usual level of chronic respiratory failure. He generally uses 2 L of oxygen at home most of the time with activity and at night. We will continue to encourage his activity while we continue to provide treatment for his chronic disease. (2) Community acquired pneumonia Qualifiers: Laterality: left Lung location: lower lobe of lung Qualified Code(s): J18.1 - Lobar pneumonia, unspecified organism Is this a current diagnosis for this admission?: Yes Plan: Patient is initiated on intravenous antibiotic therapy utilizing Zithromax 500 mg IV daily and Rocephin 1 g IV daily after an initial 2 g dose. He will also receive an aggressive pulmonary toilet utilizing Xopenex and Atrovent 3 times daily with budesonide and Mucomyst twice a day. His CBC and metabolic profile will be followed on a daily basis. 05/31/2018: Patient shows clinical improvement with his antibiotic therapy and maneuvers underlying COPD. His CBC shows an elevated white blood count after receiving several doses of intravenous Solu-Medrol. Continued monitoring the patient's clinical status will be undertaken as well as continued daily laboratory evaluation. (3) Diabetes mellitus type 2 in nonobese Is this a current diagnosis for this admission?: Yes Plan: Patient will be continued on his usual diabetic medication of metformin and a heart healthy consistent carbohydrate with no concentrated sweets diet. It is expected that his blood sugar will be erratic due to the use of steroids. Therefore he will additionally have before meals and at bedtime fingerstick blood sugars performed and he will receive sliding scale Humalog insulin based upon those results. A hemoglobin A1c will be obtained as well a TSH and a lipid profile to assist in evaluation of the patient's diabetes and other chronic problems. 05/31/2018: Patient's hemoglobin A1c is 6.1 which shows excellent control of his diabetes. His TSH is normal as is his lipid profile. No further screening or evaluation of these problems will be undertaken. (4) Dysphagia Qualifiers: Dysphagia type: unspecified Qualified Code(s): R13.10 - Dysphagia, unspecified Is this a current diagnosis for this admission?: Yes Plan: Patient has a history of dysphagia which has been evaluated by speech therapy who recommends a modified barium swallow evaluation as well as a nectar thick liquids chopped meats and vegetables diet. This will be employed immediately. 05/31/2018: Patient seems to be tolerating the nectar thick liquid with chopped meats and vegetables diet. He states he would like to have some other liquids that are essentially thin liquids and he also would like to have whole pieces of meat but he will comply with the diet at least during his hospital course. - Time Time Spent with patient: 15-24 minutes Medications reviewed and adjusted accordingly: Yes Anticipated discharge: Home Within: within 48 hours
[2018-05-31] MEDS: METFORMIN HCL 500 MG TABLET PO SCH (17:40)
[2018-05-31] MEDS ORDERED: AZITHROMYCIN 250 MG TABLET PO SCH (18:00)
[2018-05-31] MEDS: ALBUTEROL SULFATE 0.083% NEB 2.5 MG/3 ML AMPUL NEB PRN (19:55)
[2018-05-31] MEDS: AMLODIPINE BESYLATE 10 MG TABLET PO SCH (21:08)
[2018-05-31] MEDS: PRAMIPEXOLE DI-HCL 0.5 MG TABLET PO SCH (21:09)
[2018-06-01] MEDS: IPRATROPIUM BROMIDE 0.02% NEB 0.5 MG/2.5 ML AMPUL NEB SCH ×3 (00:10→15:43)
[2018-06-01] MEDS: LEVALBUTEROL HCL NEB 1.25 MG/3 ML AMPUL NEB SCH ×3 (00:10→15:43)
[2018-06-01] MEDS: LEVOTHYROXINE SODIUM 0.075 MG TABLET PO SCH (05:08)
[2018-06-01] MEDS: ACETAMINOPHEN 325 MG TABLET PO PRN (05:08)
[2018-06-01 06:06] LABS: HEMATOCRIT 34.7 % (37.9-51.0); HEMOGLOBIN 11.6 g/dL (13.5-17.0); MEAN CORPUSCULAR HEMOGLOBIN 30.6 pg (27.0-33.4); MEAN CORPUSCULAR HGB CONC 33.3 g/dL (32.0-36.0); MEAN CORPUSCULAR VOLUME 92 fl (80-97); PLATELET COUNT 184 10^3/uL (150-450); RED BLOOD COUNT 3.78 10^6/uL (4.35-5.55); RED CELL DISTRIBUTION WIDTH 14.2 % (11.5-14.0); WHITE BLOOD COUNT 18.9 10^3/uL (4.0-10.5)
[2018-06-01 06:27] LABS: ANION GAP 10 (5-19); BLOOD UREA NITROGEN 31 mg/dL (7-20); CARBON DIOXIDE 22 mmol/L (22-30); CHLORIDE 111 mmol/L (98-107); GLUCOSE 128 mg/dL (75-110); POTASSIUM 4.3 mmol/L (3.6-5.0); SODIUM 142.7 mmol/L (137-145)
[2018-06-01] MEDS: BUDESONIDE NEB 0.5 MG/2 ML AMPUL NEB SCH (08:17)
[2018-06-01] MEDS: ACETYLCYSTEINE 20% SOLN 800 MG/4 ML VIAL.NEB NEB SCH (08:17)
[2018-06-01] MEDS: METFORMIN HCL 500 MG TABLET PO SCH (09:21)
[2018-06-01] MEDS: FERROUS SULFATE 325 MG TABLET PO SCH (09:21)
[2018-06-01] MEDS: METOPROLOL SUCCINATE 50 MG TAB.SR.24H PO SCH (09:21)
[2018-06-01] MEDS: CHOLECALCIFEROL (D3) 1,000 UNIT TABLET PO SCH (09:21)
[2018-06-01] MEDS: GLIMEPIRIDE 4 MG TABLET PO SCH (09:21)
[2018-06-01] MEDS: LOSARTAN POTASSIUM 50 MG TABLET PO SCH (09:21)
[2018-06-01] MEDS: ENOXAPARIN SODIUM INJ 40 MG/0.4 ML DISP.SYRIN SUBCUT SCH (09:22)
--- NOTE | 2018-06-01 10:34 | PDOC DISCHARGE SUMMARY ---
General - Admit/Disc Date/PCP Admission Date/Primary Care Provider: 05/29/18 20:25 Discharge Date: 06/01/18 - Discharge Diagnosis (1) Acute respiratory failure with hypoxia Is this a current diagnosis for this admission?: Yes Summary: Patient is being maintained on supplemental oxygen and use of advanced airway support devices such as CPAP as needed. Efforts will be made at reducing the patient's dependence on supplemental oxygen to whatever degree is possible. An aggressive pulmonary toilet and intravenous steroids will be employed in the effort. Additionally the underlying left lower lobe pneumonia is being aggressively treated as a community-acquired pneumonia utilizing Rocephin and Zithromax. 05/31/2018: Patient is back to his usual level of chronic respiratory failure. He generally uses 2 L of oxygen at home most of the time with activity and at night. We will continue to encourage his increased activity levels while we continue to provide treatment for his chronic disease. 06/01/2018: Patient is doing well with supplemental oxygen at 1-4 L as required. Staff will continue to work on reducing his oxygen utilization during waking hours and he will be continued on his oxygen use during sleeping hours at 2 L/min per nasal cannula as that is being used to treat his chronic obstructive sleep apnea. (2) Community acquired pneumonia Is this a current diagnosis for this admission?: Yes Summary: Patient is initiated on intravenous antibiotic therapy utilizing Zithromax 500 mg IV daily and Rocephin 1 g IV daily after an initial 2 g dose. He will also receive an aggressive pulmonary toilet utilizing Xopenex and Atrovent 3 times daily with budesonide and Mucomyst twice a day. His CBC and metabolic profile will be followed on a daily basis. 05/31/2018: Patient shows clinical improvement with his antibiotic therapy and maneuvers underlying COPD. His CBC shows an elevated white blood count after receiving several doses of intravenous Solu-Medrol. Continued monitoring the patient's clinical status will be undertaken as well as continued daily laboratory evaluation. 06/01/2018: Wilmar continues to show significant clinical improvement on a daily basis. He is much more tolerant of activity and will be gradually weaned from supplemental oxygen during the daytime if possible. His white blood count has stopped rising as his steroid dosing has been discontinued. Because of his excellent clinical response he will be discharged later today after receiving his final dose of antibiotic therapy (Zithromax). (3) Diabetes mellitus type 2 in nonobese Is this a current diagnosis for this admission?: Yes Summary: Patient will be continued on his usual diabetic medication of metformin and a heart healthy consistent carbohydrate with no concentrated sweets diet. It is expected that his blood sugar will be erratic due to the use of steroids. Therefore he will additionally have before meals and at bedtime fingerstick blood sugars performed and he will receive sliding scale Humalog insulin based upon those results. A hemoglobin A1c will be obtained as well a TSH and a lipid profile to assist in evaluation of the patient's diabetes and other chronic problems. 05/31/2018: Patient's hemoglobin A1c is 6.1 which shows excellent control of his diabetes. His TSH is normal as is his lipid profile. No further screening or evaluation of these problems will be undertaken. (4) Dysphagia Is this a current diagnosis for this admission?: Yes Summary: Patient has a history of dysphagia which has been evaluated by speech therapy who recommends a modified barium swallow evaluation as well as a nectar thick liquids chopped meats and vegetables diet. This will be employed immediately. 05/31/2018: Patient seems to be tolerating the nectar thick liquid with chopped meats and vegetables diet. He states he would like to have some other liquids that are essentially thin liquids and he also would like to have whole pieces of meat but he will comply with the diet at least during his hospital course. - Additional Information Resuscitation Status: Full Code Discharge Diet: As Tolerated, Cardiac, Diabetic Discharge Activity: Activity As Tolerated, Walk Frequently Prescriptions: Amlodipine Besylate [Norvasc 10 mg Tablet] 10 mg PO DAILY #30 tablet Ferrous Sulfate [Ferosul] 325 mg PO PCBRKFST 30 Days #30 tablet Metformin HCl [Metformin HCl ER] 500 mg PO PCBRKFST 30 Days #30 tab.er.24h Metoprolol Succinate [Toprol Xl 50 mg Tab.sr] 50 mg PO DAILY 30 Days #30 tab.sr.24h Home Medications: Cholecalciferol (Vitamin D3) [Vitamin D3] 2,000 unit PO DAILY 05/29/18 Docusate Sodium [Colace] 100 mg PO DAILYP PRN 05/29/18 Glycerin 1 each RC DAILYP PRN 05/29/18 Levothyroxine Sodium 75 mcg PO DAILY 05/29/18 Losartan Potassium 100 mg PO DAILY 11/14/18 Potassium Chloride [K-Tab ER] 10 meq PO DAILY 05/29/18 Pramipexole Di-HCl [Mirapex] 1 mg PO QHS 05/29/18 Simvastatin [Zocor 10 mg Tablet] 10 mg PO DAILY 05/29/18 Amlodipine Besylate [Norvasc 10 mg Tablet] 10 mg PO DAILY #30 tablet 06/01/18 Ferrous Sulfate [Ferosul] 325 mg PO PCBRKFST 30 Days #30 tablet 06/01/18 Metformin HCl [Metformin HCl ER] 500 mg PO PCBRKFST 30 Days #30 tab.er.24h 06/01 Metoprolol Succinate [Toprol Xl 50 mg Tab.sr] 50 mg PO DAILY 30 Days #30 tab.sr.24h 06/01/18 History of Present Illness Patient complains of: Cough and dyspnea History of Present Illness: WILMAR SHERMAN is a 82 year old male who presented to the emergency room with acute onset of cough and dyspnea. He admits that he began having a cough on the afternoon of admission which became more and more persistent with severe paroxysms lasting for more extended durations each time. The cough was accompanied by progressively more severe dyspnea which became so bad that he asked that EMS be summoned. Upon EMS arrival he was found to have an O2 sat of 85% on room air and to be in significant respiratory distress with marked tachypnea and requiring use of accessory muscles to assist his breathing. He admits that the cough has been productive of mostly clear but occasionally yellowish sputum and he has rhinorrhea but this is a chronic condition. He admits that he has had pneumonia in the past with an episode last year where he had similar symptoms and required oxygen during his hospitalization and at home after discharge. He also admits a history of dysphagia and is prescribed to use nectar thick liquids however he does not always follow his doctor's recommendation. In the emergency room he was found to have a left lower lung field infiltrate (airspace disease) but was easily stabilized with 4 L of oxygen via nasal cannula resulting in a 97% oxygen saturation. He was admitted to treat his community-acquired pneumonia due to his acute respiratory failure with hypoxia and his age and multiple comorbidities. Hospital Course Hospital Course: 05/31/2018: Wilmar is doing substantially better today. His breathing is significantly improved and he is able to tolerate activity although he still requires supplemental oxygen at 2-3 L. We discussed this and he will be willing to test paid and activity with the nurse assisting him in walking in the room and in the bell. I have converted his antibiotics to an oral formulation and have encouraged him to continue to eat and drink well. We have discussed at length the plan to discharge him to home tomorrow if he continues to do well and this is what he desires. He denies pain in his chest or abdomen and his or vomiting. His cough is become essentially nonproductive at this point and he is having a less frequent cough. 06/01/2018: Wilmar continues to improve substantially he is resting in bed and reading the newspaper at the time that I entered his room. Examination is again improved with decreased rales and increased air motion in the right lower lobe. He continues to eat and drink well and will finish his antibiotic therapy course today prior to his discharge this evening. He will utilize his home oxygen at 1 -3 L/min per nasal cannula on an as-needed basis only to aid with dyspnea or other shortness of breath with exertion or other activity during the daytime and waking hours. He will uses oxygen at 3 L/min per nasal cannula during sleep for treatment of his obstructive sleep apnea. He should follow-up with his primary care provider upon his return to home as soon as possible. Physical Exam Vital Signs: Temp Pulse Resp BP Pulse Ox 97.9 F 57 L 20 120/78 91 L 06/01/18 08:29 06/01/18 08:29 06/01/18 08:29 06/01/18 08:29 06/01/18 09:44 Intake & Output 05/30/18 05/31/18 06/01/18 23:59 23:59 23:59 Intake Total 2642 1396 Output Total 1475 1175 350 Balance 1167 221 -350 Weight 64.9 kg 66.2 kg 66.7 kg General appearance: PRESENT: no acute distress, cooperative Head exam: PRESENT: atraumatic, normocephalic Eye exam: PRESENT: conjunctiva pink, EOMI Ear exam: PRESENT: normal external ear exam. ABSENT: bleeding, drainage Mouth exam: PRESENT: neck supple, tongue midline Neck exam: ABSENT: thyromegaly, tracheal deviation Respiratory exam: PRESENT: decreased breath sounds - Slightly decreased breath sounds at the right base posteriorly and laterally significantly improved from yesterday with excellent air motion., rales - Mild coarse rales at the right base definitely reduced from yesterday's exam, symmetrical, unlabored. ABSENT: accessory muscle use, prolonged expiratory phas, retraction, rhonchi, stridor, tachypnea, wheezes Cardiovascular exam: PRESENT: RRR. ABSENT: clicks, diastolic murmur, gallop, rubs, systolic murmur Vascular exam: PRESENT: normal capillary refill. ABSENT: pallor GI/Abdominal exam: PRESENT: normal bowel sounds, soft Rectal exam: PRESENT: deferred Extremities exam: ABSENT: joint swelling, pedal edema Musculoskeletal exam: PRESENT: full ROM, normal inspection Neurological exam: PRESENT: alert, oriented to person, oriented to place, oriented to time, oriented to situation, CN II-XII grossly intact. ABSENT: motor sensory deficit Psychiatric exam: PRESENT: appropriate affect, normal mood Skin exam: PRESENT: dry, intact, warm. ABSENT: jaundice, rash, urticaria Results Laboratory Results: 06/01/18 05:04 06/01/18 05:04 06/01/18 06/01/18 05:04 05:04 WBC 18.9 H RBC 3.78 L Hgb 11.6 L Hct 34.7 L MCV 92 MCH 30.6 MCHC 33.3 RDW 14.2 H Plt Count 184 Sodium 142.7 Potassium 4.3 Chloride 111 H Carbon Dioxide 22 Anion Gap 10 BUN 31 H Creatinine 0.90 Est GFR ( Amer) > 60 Est GFR (Non-Af Amer) > 60 Glucose 128 H Calcium 9.0 Magnesium 2.1 Impressions: Chest X-Ray 05/29/18 16:27 IMPRESSION: Left lower lobe pneumonia. Ectasia of the ascending aorta. Modified Barium Swallow 05/31/18 00:00 IMPRESSION: LARYNGEAL PENETRATION WITH THIN LIQUIDS. SILENT ASPIRATION OF POST SWALLOW RESIDUAL CONTRAST FROM THE VALLECULA AND PIRIFORM SINUSES.PLEASE SEE SPEECH PATHOLOGIST REPORT FOR OTHER FINDINGS AND RECOMMENDATIONS. Qualifiers - * PATIENT BEING DISCHARGED WITH ANY OF THE FOLLOWING DIAGNOSIS: No Plan Discharge Plan: Discharged home in improved and stable condition Time Spent: Greater than 30 Minutes
[2018-06-01] MEDS: INSULIN LISPRO 100 UNIT/ML 3 ML VIAL SUBCUT PRN (12:52)
[2018-06-01 16:48] VITALS: BP 108/54
== END 2018-06-01 17:20 | disposition home or self-care (01) | DRG 189 ==
LOC: ER 16:11 → EH 19:59 → OBSVTOIN 20:25 → 3W 23:00
PROVIDERS: ADMIT Internal Medicine; ATTEND Internal Medicine
DX: J96.21 Acute and chronic respiratory failure with hypoxia (principal); J18.9 Pneumonia, unspecified organism; E87.5 Hyperkalemia; R13.10 Dysphagia, unspecified; D50.9 Iron deficiency anemia, unspecified; E78.5 Hyperlipidemia, unspecified; I10 Essential (primary) hypertension; E03.9 Hypothyroidism, unspecified; F03.90 Unspecified dementia, unspecified severity, without behavioral disturbance, psychotic disturbance, mood disturbance, and anxiety; E11.9 Type 2 diabetes mellitus without complications; Z79.899 Other long term (current) drug therapy; Z99.81 Dependence on supplemental oxygen
CPT/HCPCS: 36415; 36600; 51701; 71045; 74230; 80048; 80053; 80061; 81001; 82550; 82553; 82803; 82962; 83036; 83735; 84100; 84132; 84443; 84484; 85025; 85027; 87040; 90686; 93005; 93010; 94640; 94660; 96361; 96365; 96367; 96375; 99285; G8978-GP; G8979-GP; G8996-GN; G8997-GN; J0456; J0696; J1650; J1815; J2920; J2930; J3490; J7030; J7060; J7620